=== PATIENT | male | born 1970 | race Caucasian/White ===

== ENCOUNTER 2019-07-01 08:04 | Emergency (ER) | payer OTHER, SELFPAY ==
--- NOTE | ~2019-07-01 | XR_ITS ---
EXAMINATION: XR wrist RT min 3V DATE: 07/01/2019 08:15 INDICATION: Right wrist injury. Ulnar-sided pain. TECHNIQUE: 4 views of right wrist were obtained. COMPARISON: None. FINDINGS: Bone alignment is normal. No fracture. There is mild osteoarthritis of triscaphe joint, fir st carpometacarpal joint, and first and third metacarpophalangeal joints. IMPRESSION: 1. Mild polyarticular osteoarthritis. Reviewed, dictated and finalized at location A. [employer]
[2019-07-01 08:07] VITALS: BP 157/104; PULSE 106; RESP 14; TEMP 36.2; O2SAT 99
[2019-07-01 09:44] VITALS: BP 144/104; PULSE 82; RESP 18; O2SAT 98
--- NOTE | 2019-07-01 09:46 | ED.UPPEXIN ---
HPI - Extremity Injury (Upper) General Chief Complaint: Extremity Injury, Upper Stated Complaint: R hand injury Time Seen by Provider: 07/01/19 08:16 Source: patient and RN notes reviewed Mode of arrival: ambulatory Limitations: no limitations History of Present Illness HPI narrative: Pt is a 48 y/o male presenting to the ED c/o wrist pain. 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 Pt state she has tingling in his rt fingers, but denies wrist swelling or any other injuries. Pt states he is rt handed. Onset (ago): unknown Other Extremity Injury: Right: wrist Handedness: right Associated symptoms: other (Finger tingling) Related Data Home Medications Medication Instructions Recorded Confirmed carvedilol 07/01/19 pantoprazole PO 07/01/19 tramadol mg 07/01/19 Allergies Allergy/AdvReac Type Severity Reaction Status Date / Time No Known Allergies Allergy Verified 07/01/19 08:32 Review of Systems Review of Systems: Narrative: MUSCULOSKELETAL: Reports rt wrist pain. Denies wrist swelling. NEUROLOGIC: Reports rt finger tingling. All systems reviewed & are unremarkable except as noted in HPI and below PMFSH Past Medical History Medical History No significant past medical history Surgical History Surgical History No significant past surgical history Social History Social History Smoking status: Unknown if ever smoked Gender identity (if verbalized by the patient): Male Exam Narrative: Exam Narrative: GENERAL: Well-appearing, well-nourished, and in no acute distress. EYES: EOMI. NECK: Supple. CHEST: No respiratory distress. ABDOMEN: Nondistended. EXTREMITIES: Normal range of motion. No edema. Full flexion and extension of rt wrist and elbow. Intact sensation of rt wrist. 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 SKIN: Warm, dry, no rash. NEURO: No focal deficits. Alert and oriented. Median, ulnar, and radial nerve of RUE intact. Course Vital Signs Vital signs: Vital Signs Temperature 36.2 C L 07/01/19 08:07 Pulse Rate 106 H 07/01/19 08:07 Respiratory Rate 14 07/01/19 08:07 Blood Pressure 157/104 H 07/01/19 08:07 Pulse Oximetry 99 07/01/19 08:07 Temperature 36.2 C L 07/01/19 08:07 Pulse Rate 106 H 07/01/19 08:07 Respiratory Rate 14 07/01/19 08:07 Blood Pressure 157/104 H 07/01/19 08:07 Pulse Oximetry 99 07/01/19 08:07 MDM - Extremity Injury (Upper) MDM Narrative Medical decision making narrative: Patient presented for evaluation of wrist pain that began yesterday after trauma to the wrist. No decreased range of motion, no numbness or tingling. No deformity or bruising. Patient with good range of motion on exam without any neurovascular deficits. Radial pulses 2+. Strength is 5 out of 5. X-ray is negative. Patient likely with wrist strain. He was discharged home, rice to take ibuprofen and Tylenol as needed for symptoms. Differential Diagnosis Differential diagnosis: Likely sprain and strain of wrist, fracture of wrist, finger sprain and fracture of hand Imaging Data Radiologist's impression: ITS Impressions Wrist X-Ray 07/01/19 08:28 IMPRESSION: 1. Mild polyarticular osteoarthritis. Discharge Plan Discharge Clinical Impression: Sprain and strain of wrist Patient Disposition: Home, Self-Care Condition: Stable Instructions: Antibiotic Form, Wrist Sprain (ED) Additional Instructions: X-ray of the right wrist is normal without any sign of fracture. Go to ER for worsening pain, nausea/vomiting, fever/chills, worsening bleeding, chest pain, shortness of breath, blood in stools or urine, etc. or any other concerns. Take any prescribed medications as directed. Stay well-hydrated If you do not have a drug allergy to tylenol or motrin and can tolerate it then take tylenol or motr
== END 2019-07-01 09:51 | disposition home or self-care (01) ==
PROVIDERS: Emergency Provider Emergency Medicine
DX: S63.501A Unspecified sprain of right wrist, initial encounter (principal); S66.911A Strain of unspecified muscle, fascia and tendon at wrist and hand level, right hand, initial encounter; X58.XXXA Exposure to other specified factors, initial encounter
CPT/HCPCS: 73110; 99283